=== PATIENT | female | born 1960 | race African-American/Black ===

== ENCOUNTER 2018-12-04 07:46 | Emergency (ER) | payer MEDICAID ==
[~2018-12-04] VITALS: Ht 160 cm; Wt 65.0 kg
[2018-12-04] MEDS ORDERED: LIDOCAINE HCL/PF 1% 10 MG/ML 5ML VIAL IJ ONE (08:30)
[2018-12-04] MEDS ORDERED: BACITRACIN ZINC OINT UDPKT TOP ONE (08:30)
[2018-12-04 15:40] VITALS: BP 134/97
== END 2018-12-04 19:06 | disposition home or self-care (01) ==
LOC: ER 07:46
DX: S01.112A Laceration without foreign body of left eyelid and periocular area, initial encounter (principal); S01.81XA Laceration without foreign body of other part of head, initial encounter; I10 Essential (primary) hypertension; J45.909 Unspecified asthma, uncomplicated; Z88.0 Allergy status to penicillin; Y04.0XXA Assault by unarmed brawl or fight, initial encounter; Y93.89 Activity, other specified; Y92.018 Other place in single-family (private) house as the place of occurrence of the external cause
CPT/HCPCS: 12013; 99283; J3490